=== PATIENT | male | born 1940 | race Caucasian/White ===

== ENCOUNTER 2024-01-05 12:29 | Outpatient (AMB) | payer MEDICARE, SELFPAY ==
--- NOTE | 2024-01-05 12:42 | MHC.OFFVIS ---
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 Pt states he was a previous pt of Dr. Dowling. Patient states he had a left knee arthroscopy about 12 years ago. Pt states about 7 months ago he started having left knee pain again especially when walking up and down stairs. Pt denies any previous injections in his left knee. He has done physical therapy exercises which aggravated his pain. He has also tried Tylenol and anti-inflammatory medicines which gave him minimal relief. Allergies No Known Allergies Allergy (Verified 01/05/24 12:43) Medication List - Last Reconciled 01/05/24 by Tani Dowling MD amlodipine-benazepril 5-20 mg 1 cap PO DAILY hydrochlorothiazide 25 mg PO DAILY Physical Exam Const Other: Well-nourished well-developed very friendly male awake alert and oriented x3 in no acute distress Extrem Other: Bilateral lower extremity examination shows good capillary refill, no skin lesions noted, normal sensation light touch Left knee examination shows a minimal effusion, palpable crepitus with range of motion, pain with range of motion, no instability Office Procedures Joint Injection/Aspiration Joint Injection/Aspiration Primary Site: left knee Prep: site was prepped using aseptic technique Injected: 40 mg of, DepoMedrol and 1% plain lidocaine Procedure: The patient tolerated the procedure well Coding 01214 - Large joint Procedure code (CPT) selection complete Results Reviewed Results Reviewed: X-rays of the patient's left knee show mild to moderate joint space narrowing most significant in the medial compartment, subchondral sclerosis, no acute bony abnormalities Assessment & Plan Assessment & Plan (1) Left knee pain: Code(s): M25.562 - Pain in left knee Category: Medical Plan Mr. Chao presents with left knee pain due to degenerative joint disease. I had a lengthy discussion with the patient regarding the treatment options. The risks and benefits of a left knee cortisone injection were discussed at length with the patient. The patient wished to proceed. He tolerated the injection well. He will continue with his home exercise program. He will contact me prior to his follow-up appointment in 3 months should his symptoms worsen in any way. I spent 21 minutes in reviewing the patient's records and imaging studies, seeing the patient and documenting in the medical record. Orders: Orders XR knee LT 3V 12/21/23 M25.562 - Pain in left knee XR knee LT 3V Today M25.562 - Pain in left knee AMB Joint Injection/Aspiration Today M25.562 - Pain in left knee Coding Level of Care Code Est Pt Level 3 (92751) Complex EM visit Add On G2211 Diagnoses Left knee pain M25.562 CPT Codes Coding - 80889 Large joint: 05370 - Large joint ([id number])
== END 2024-01-05 13:08 | disposition home or self-care (01) ==
PROVIDERS: Visit Provider Orthopaedic Surgery
DX: M25.562 Pain in left knee (principal)
CPT/HCPCS: 20610; 99213

== ENCOUNTER 2024-01-05 13:50 | Outpatient (REF) | payer MEDICARE, SELFPAY ==
--- NOTE | ~2024-01-05 | XR_ITS ---
EXAMINATION: XR LEFT KNEE 3 VIEWS CLINICAL INFORMATION: Pain in left knee M25.562. COMPARISON: None available. TECHNIQUE: Three views of the left knee. FINDINGS: Severe medial compartment arthritis, joint space, osteophytes, sclerosis, cyst. Mild patellofemoral arthritis. No visible acute fracture or dislocation. Small effusion. Vascular calcification. XR/XR knee LT 3V IMPRESSION: Degenerative arthritis as above. Study is assigned for dictation on March 08, 2024 Electronically signed by: Asif Madden MD 03/08/2024 11:55 AM TRACY
== END 2024-01-05 13:51 | disposition home or self-care (01) ==
LOC: HO.HOSX 13:50
PROVIDERS: Visit Provider Orthopaedic Surgery
DX: M25.562 Pain in left knee (principal)
CPT/HCPCS: 20610; 73562; 99212; J1010; J2003

== ENCOUNTER 2024-04-06 13:02 | Outpatient (AMB) | payer MEDICARE, SELFPAY ==
--- NOTE | 2024-04-06 13:03 | A.OFFVIS_ITS ---
Vital Signs 04/06/24 13:09 Height 5 ft 10 in Weight 235 lb BMI 33.7 Intake Visit Reasons: Left knee pain and giving way Intake Note: Dwight is an 83 year old male who presents with complaints of progressively worsening left knee pain and giving way. The patient did undergo left knee arthroscopic surgery approximately 12 years ago. He got fairly good relief from that procedure initially. The patient states that he re-injured his left knee approximately 1 year ago. He twisted his knee and had acute onset of pain. He was given a cortisone injection at his last visit which gave him minimal relief. He has tried Tylenol and anti-inflammatory medicines which gave him minimal relief. He states that his left knee will give out several times per day. He has failed the last 6 weeks of conservative treatment. He has done physical therapy exercises which aggravated his pain. Allergies No Known Allergies Allergy (Verified 04/06/24 13:05) Medication List - Last Reconciled 04/06/24 by Tani Dowling MD amlodipine-benazepril 5-20 mg 1 cap PO DAILY hydrochlorothiazide 25 mg PO DAILY tamsulosin 0.4 mg PO DAILY Physical Exam Vital Signs: BMI result Body Mass Index 33.7 Const Other: Well-nourished well-developed very friendly male awake alert and oriented x3 in no acute distress Extrem Other: Bilateral lower extremity examination shows good capillary refill, no skin lesions noted, normal sensation light touch Left knee examination shows a minimal effusion, mild crepitus with range of motion, tenderness along his medial joint line, positive Joanie's test, no instability Results Reviewed Results Reviewed: Standing full weight-bearing x-rays of the patient's left knee show mild diffuse joint space narrowing, no acute bony abnormalities Assessment & Plan Assessment & Plan (1) Tear of medial meniscus of left knee: Code(s): S83.242A - Other tear of medial meniscus, current injury, left knee, initial encounter Category: Medical Plan Mr. Chao presents with progressively worsening symptoms most likely due to a recurrent medial meniscus tear. Will send the patient for an MRI of his knee for further evaluation. I will see him back once the MRI is completed to discus s the findings and treatment options. Feel free to call me at any time should questions regarding his orthopedic management arise. I spent 20 minutes in reviewing the patient's records and imaging studies, seeing the patient and documenting in the medical record. Orders: Orders MR knee LT wo con Today S83.242A - Other tear of medial meniscus, current injury, left knee, initial encounter Coding Level of Care Code Est Pt Level 3 (69454) Complex EM visit Add On G2211 Diagnoses Tear of medial meniscus of left knee S83.242A
[2024-04-06 13:09] VITALS: BMI 33.7
== END 2024-04-06 13:31 | disposition home or self-care (01) ==
PROVIDERS: Visit Provider Orthopaedic Surgery
DX: S83.242A Other tear of medial meniscus, current injury, left knee, initial encounter (principal)
CPT/HCPCS: 99213; G2211

== ENCOUNTER → 2024-04-06 13:02 | Outpatient (BNVA) | payer MEDICARE, SELFPAY | PROVIDERS: Visit Provider Orthopaedic Surgery | DX: S83.242A Other tear of medial meniscus, current injury, left knee, initial encounter (principal) | CPT/HCPCS: 99212 ==

== ENCOUNTER → 2024-04-19 17:55 | Outpatient (BNV) | payer MEDICARE, SELFPAY | PROVIDERS: PCP Physician Assistant; Visit Provider Radiology Diagnostic Radiology | DX: M17.12 Unilateral primary osteoarthritis, left knee (principal); M25.462 Effusion, left knee; S83.242A Other tear of medial meniscus, current injury, left knee, initial encounter | CPT/HCPCS: 73721 ==

== ENCOUNTER 2024-04-19 18:12 | Outpatient (REF) | payer MEDICARE, SELFPAY ==
--- NOTE | ~2024-04-19 | MR_ITS ---
EXAMINATION: MRI LEFT KNEE WITHOUT CONTRAST HISTORY: S83.242A - Other tear of medial meniscus, current injury, left knee COMPARISON: Correlation is made with plain films of the left knee dated 01/05/2024. TECHNIQUE: Coronal T1 and fat-suppressed proton density, sagittal proton density and fat-suppressed proton density, and axial fat suppressed T2 weighted MR images of the left knee were obtained. FINDINGS: There is severe osteoarthritis of the medial compartment with cartilage loss, osteophyte formation, and subchondral marrow changes. Bone marrow signal intensity is otherwise normal. There is a moderate suprapatellar joint effusion. There is no Scott's cyst. The anterior and posterior cruciate ligaments and medial and lateral collateral ligaments are intact. There is partial extrusion of the medial meniscus. There is a horizontally oriented linear focus of increased T2 signal intensity in the posterior horn of the medial meniscus which contacts the inferior joint surface, consistent with a horizontal tear. The anterior horn and body of the medial meniscus are irregular in shape and demonstrates multiple foci of increased signal intensity, consistent with a degenerative tear. The lateral meniscus demonstrates a partial discoid configuration with central enlargement in the coronal plane. There are amorphous areas of increased signal intensity in the anterior and posterior horns toward the intercondylar notch which may indicate tears. The patellar and quadriceps tendons and patellar retinacula are unremarkable in appearance. MR/MR knee LT wo con IMPRESSION: 1. Severe osteoarthritis of the medial compartment. Moderate joint effusion. 2. Degenerative tear of the anterior horn and body of the medial meniscus. Horizontal tear of the posterior horn of the medial meniscus. 3. 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 Amorphous areas of increased signal intensity in the anterior and posterior horns may indicate tears. Electronically signed by: August Dior MD 04/20/2024 08:15 AM EST
--- OUTSIDE RECORDS SUMMARY | 2024-04-19 18:38 | XMS_ITS | Clinical Summary ---
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 08/30/2023 Active ascorbic acid, vitamin C, 500 mg capsule Take by mouth. OTC 02/04/2021 Active aspirin 81 mg EC tablet Take 1 tablet by mouth daily. OTC 02/04/2021 Active B complex tablet Take by mouth. OTC 02/04/2021 Active hydroCHLOROthiazide (HYDRODIURIL) 25 mg tablet Take 1 Tablet by mouth daily. 08/30/2023 Active SAW PALMETTO ORAL Take by mouth. Act tonio vitamin E acid succinate (vitamin E succinate) 268 mg (400 unit) tablet Take by mouth. OTC 02/04/2021 Active ZINC ORAL ZINC 15 MG CAP : Take by mouth. OTC - Oral 02/04/2021 Active multivitamin with iron-minerals 9 mg iron/15 mL liquid Take 15 mL by mouth 1 (one) time each day. Active multivitamin tablet Take 1 tablet by mouth 1 (one) time each day. Active glucosamine-chondroi tin 500-400 mg tablet Take 1 tablet by mouth 1 (one) time each day. Active tamsulosin (FLOMAX) 0.4 mg 24 hr capsule Take 1 capsule (0.4 mg total) by mouth 1 (one) time each day. Capsules should be taken 30 minutes following the same meal each day. 90 each 02/28/2024 05/28/2024 Active Active Problems Problem Noted Date Diagnosed Date Benign prostatic hyperplasia with nocturia 08/29 Class 2 obesity due to excess calories in adult 07/31/2021 Primary hypertension 02/04/2021 Encounters Date Type Department Care Team Description 02/28/2024 3:00 PM EST Office Visit Director [facility] [address] [place] [id number] Jorge Davis PA Primary hypertension (Primary Dx); Urinary incontinence, unspecified type; Benign prostatic hyperplasia with nocturia from Last 3 Months Immunizations Name Administration Dates Next Due Influenza trivalent, 0.5mL (Fluad) 65yo and olde r 12/03/2020,04/25/2016 Influenza, Unspecified 11/30/2022,12/30/2021 [facility] SARS-CoV-2 COVID-19, mRNA, LNP-S, preservative free 12/30/2021,12/19/2020 Pneumococcal conjugate 20 va lent (Prevnar 20, PCV 20) 2mo and older 08/17/2022 Pneumococcal polysaccharide 23 valent (Pneumovax 23) 2yo and older 08/04/2021,01/13/2018 Tdap Tetanus diptheria acell ular pertussis (Boostrix; Adacel) 7yo and older 08/04/2021 Zoster recombinant (Shingrix) 19yo and older ,01/13/2018 Surgical History Surgery Date Site/Laterality Comments TONSILLECTOMY PROCEDURE: HISTORICAL TONSILLECTOMY KNEE ARTHROSCOPY Left PROCEDURE: AL ARTHROSCOPY AID TX SPINE&/FX KNEE W/O FIXJ; COMMENT: in 2012 Medical History Medical History Date Comments HTN (hypertension) DX:HTN (hyper tension) Social History Tobacco Use Types Packs/Day Years Used Date Smoking Tobacco: Former Cigarettes 0 03/29/1954 - 03/29/1966 Smokeless Tobacco: Never Tobacco Cessation:Counseling Given: Not Answered Alcohol Use Standard Drinks/Week Comments Not Currently 0 (1 standard drink = 0.6 oz pur e alcohol) Sex and Gender Information Value Date Recorded Sex Assigned at Not on file Gender Identity Not on file Sexual Orientation Not on file Job Start Date Occupation Industry Not on file Not on file Not on file Obstetrics History Last Filed Vital Signs Vital Sign Reading Time Taken Comments Blood Pressure 130/52 02/28/2024 2:41 PM EST Pulse 64 02/28/2024 2:41 PM EST Temperature - - Respiratory Rate 16 02/28/2024 2:41 PM EST Oxygen Saturation - - Inhaled Oxygen Concentration - - Weight 109 kg (241 lb 1.6 oz) 02/28/2024 2:41 PM EST Height 177.8 cm (5' 10 ) 08/30/2023 12:54 PM EDT Body Mass Index 34.59 08/30/2023 12:54 PM EDT Plan of Treatment Upcoming Encounters Date Type Department Care Team (Late st Contact Info) Description 08/28/2024 2:30 PM EDT Office Visit Director [facility] - [address] [place] [address] Jorge Davis PA [address] [place] [address] Health Maintenance Due Date Last Done Comments RSV Immunization Patients 60+ Years Old (1 - 1-dose 75+ series) 2016 Depression Screening 03/08/2022 Falls Risk Assessment 03/08/2022 Medicare Annual Wellness Visit 03/08/2022 Social Influencers of Health Screening 03/08/2022 Hypertension/CHF/CAD Annual BMP Blood Test 02/27/2025 02/28/2024, 08/30/2023, 08/30/2023 Cholesterol Screening (Lipid Panel) 02/04/2026 02/04/2021 DTaP,Tdap,and Td Vaccines (2 - Td or Tdap) 08/05/2031 08/04/2021 Zoster Vaccines Completed 01/17/2019, 01/27, 01/13/2018 Pneumococcal Vaccine: 65+ Years Completed 08/17/2022, 08/04/2021, 02/15/2018, Additional history exists COVID-19 Vaccine Completed 12/16/2023, , 12/30/2021, Additional history exists Influenza Vaccine Completed 12/16/2023, , 11/30/2022, Additional history exists HIB Vaccines Aged Out No longer eligi ble based on patient's age to complete this topic HPV Vaccines Aged Out No longer eligi ble based on patient's age to complete this topic Hepatitis A Vaccines Aged Out No long er eligible based on patient's age to complete this topic Hepatitis B Vaccines Aged Out No long er eligible based on patient's age to complete this topic IPV Vaccines Aged Out No longer eligi ble based on patient's age to complete this topic MMR Vaccines Aged Out No longer eligi ble based on patient's age to complete this topic Meningococcal ACWY Vaccine Aged Out N o longer eligible based on patient's age to complete this topic RSV Immunization Patients Under 20 months Aged Out No longer eligible based on patient's age to complete this topic Varicella Vaccines Aged Out No longer eligible based on patient's age to complete this topic Procedures Procedure Name Priority Date/Time Associated Diagnosis Comments URINALYSIS WITH REFLEX MICROSCOPIC AND CULTURE Routine 02/28/2024 3:33 PM EST Urinary incontinence, unspecified type BASIC METABOLIC PANEL Routine 02/28/2024 3:33 PM EST Urinary incontinence, unspecified type ORTIZ URINE CULTURE TUBE Routine 02/28/2024 3:30 PM EST Urinary incontinence, unspecified type URINALYSIS WITH REFLEX MICROSCOPIC AND CULTURE Routine 02/28/2024 3:30 PM EST Urinary incontinence, unspecified type LIPID PANEL Routine 02/04/2021 from Last 3 Months or Most Recently Relevant to Health Maintenance Results * Urinalysis with reflex microscopic and culture (02/28/2024 3:33 PM EST) Specific [place] Urine 1.017 1.003 - 1.030 LAB URINALYSIS - AUTOMATED METHOD 02/28/2024 6:43 PM EST [facility] pH, Urine 6.0 5.0 - 8.0 pH LAB URINALYSIS - AUTOMATED METHOD 02/28/2024 6:43 PM EST [facility] Leukocytes, Urine Negative Negative LAB URINALYSIS - AUTOMATED METHOD 02/28/2024 6:43 PM [facility] Nitrite, Urine Negative Negative LAB URINALYSIS - AUTOMATED METHOD 02/28/2024 6:43 PM [facility] Protein, Urine Negative <=Trace mg/dL LAB URINALYSIS - AUTOMATED METHOD 02/28/2024 6:43 PM [facility] Glucose, Urine Negative Negative mg/dL LAB URINALYSIS - AUTOMATED METHOD 02/28/2024 6:43 PM [facility] Ketones, Urine Negative Negative mg/dL LAB URINALYSIS - AUTOMATED METHOD 02/28/2024 6:43 PM [facility] Urobilinogen, Urine 0.2 0.2 - 1.0 mg/dL LAB URINALYSIS - AUTOMATED METHOD 02/28/2024 6:43 PM [facility] Bilirubin, Urine Negative Negative LAB URINALYSIS - AUTOMATED METHOD 02/28/2024 6:43 PM [facility] Blood, Urine Negative Negative LAB URINALYSIS - AUTOMATED METHOD 02/28/2024 6:43 PM [facility] Urine Urine specimen obtained by clean catch procedure / Unknown Non-blood Collection / Unknown 02/28/2024 3:33 PM EST 02/28/2024 3:33 PM EST Jorge MANCINI LAB URINE ORDER SHALA [facility] [address] [place] [address], * Basic metabolic panel (02/28/2024 3:33 PM EST) Sodium 141 133 - 145 mmol/L LAB CHEMISTRY METHOD 02/28/2024 6:22 PM [facility] Potassium 4.2 3.5 - 5.5 mmol/L LAB CHEMISTRY METHOD 02/28/2024 6:22 PM [facility] Chloride 107 96 - 110 mmol/L LAB CHEMISTRY METHOD 02/28/2024 6:22 PM [facility] CO2 27 21 - 32 mmol/L LAB CHEMISTRY METHOD 02/28/2024 6:22 PM [facility] Anion Gap 7 3 - 11 LAB CHEMISTRY METHOD 02/28/2024 6:22 PM [facility] Glucose 94 70 - 100 mg/dL LAB CHEMISTRY METHOD 02/28/2024 6:22 PM [facility] BUN 25 5 - 25 mg/dL LAB CHEMISTRY METHOD 02/28/2024 6:22 PM [facility] Creatinine 0.99 0.70 - 1.30 mg/dL LAB CHEMISTRY METHOD 02/28/2024 6:22 PM [facility] eGFR 76 >=60 mL/min/1. 73m2 LAB CHEMISTRY METHOD 02/28/2024 6:22 PM [facility] Comment:Calculation based on the??Chronic Kidney Disease Epidemiology Collaboration (CKD-EPI) equation refit??without adjustment for race. BUN/Creatinine Ratio 25.3 LAB CHEMISTRY METHOD 02/28/2024 6:22 PM [facility] Calcium 10.0 8.5 - 10.5 mg/dL LAB CHEMISTRY METHOD 02/28/2024 6:22 PM [facility] Blood Venous blood specimen / Unknown Venipuncture / Unknown 02/28/2024 3:33 PM EST 02/28/2024 3:33 PM EST Jorge MANCINI LAB BLOOD ORDER SHALA [facility] [address] [place] [address], * Ortiz urine culture tube (02/28/2024 3:30 PM EST) Extra Tube Hold for add-ons. 02/28/2024 6:01 PM [facility] Comment:Auto resulted. Urine Urine specimen obtained by clean catch procedure / Unknown Non-blood Collection / Unknown 02/28/2024 3:30 PM EST 02/28/2024 4:50 PM EST Jorge MANCINI LAB URINE ORDER SHALA [place]ristian [place] ([facility]) [facility] [address] [place] [address], * (ABNORMAL) Lipid panel (02/04/2021) LDL/HDL Ratio 5(A) 0 - 4 Triglycerides 196(A) 0 - 150 mg/dL Cholesterol 200 0 - 200 mg/dL HDL 42 40 mg/dL LDL Cholesterol 119(A) 0 - 100 mg/dL Blood Venous blood specimen / Unknown Historical Provider LAB BLOOD ORDERAB LES from Last 3 Months or Most Recently Relevant to Health Maintenance Care Teams 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
== END 2024-04-19 18:13 | disposition home or self-care (01) ==
LOC: HO.MRI 18:12
PROVIDERS: PCP Physician Assistant; Visit Provider Orthopaedic Surgery
DX: S83.242A Other tear of medial meniscus, current injury, left knee, initial encounter (principal)
CPT/HCPCS: 73721

== ENCOUNTER 2024-05-09 12:29 | Outpatient (AMB) | payer MEDICARE, SELFPAY ==
[2024-05-09 12:34] VITALS: BMI 33.7
--- NOTE | 2024-05-09 12:34 | A.OFFVIS_ITS ---
Vital Signs 05/09/24 12:34 Height 5 ft 10 in Weight 235 lb BMI 33.7 Intake Visit Reasons: Left knee pain and giving way Intake Note: Dwight is an 83 year old male who presents with complaints of progressively worsening left knee pain and giving way. The patient did undergo left knee arthroscopic surgery approximately 12 years ago. He got fairly good relief from that procedure initially. The patient states that he re-injured his left knee approximately 1 year ago. He twisted his knee and had acute onset of pain. He was given a cortisone injection at his last visit which gave him minimal relief. He has tried Tylenol and anti-inflammatory medicines which gave him minimal relief. He states that his left knee will give out several times per day. He has failed the last 6 weeks of conservative treatment. He has done physical therapy exercises which aggravated his pain. Allergies No Known Allergies Allergy (Verified 04/06/24 13:05) Medication List - Last Reconciled 05/09/24 by Tani Dowling MD amlodipine-benazepril 5-20 mg 1 cap PO DAILY hydrochlorothiazide 25 mg PO DAILY tamsulosin 0.4 mg PO DAILY Physical Exam Vital Signs: BMI result Body Mass Index 33.7 Const Other: Well-nourished well-developed very friendly male awake alert and oriented x3 in no acute distress Extrem Other: Bilateral lower extremity examination shows good capillary refill, no skin lesions noted, normal sensation light touch Left knee examination shows a minimal effusion, mild crepitus with range of motion, tenderness along his medial joint line, positive Joanie's test, no instability Results Reviewed Results Reviewed: Standing full weight-bearing x-rays of the patient's left knee shows moderate diffuse joint space narrowing, no acute bony abnormalities MRI of the patient's left knee shows moderate diffuse degenerative joint disease as well as a recurrent medial meniscus tear Assessment & Plan Assessment & Plan (1) Tear of medial meniscus of left knee: Code(s): S83.242A - Other tear of medial meniscus, current injury, left knee, initial encounter Category: Medical Plan Mr. Chao presents with recurrent left knee pain and mechanical symptoms due to degenerative joint disease as well as a recurrent medial meniscus tear. I had a lengthy discussion with the patient regarding the treatment options. The risks and benefits of left knee revision arthroscopic surgery versus left total knee replacement surgery were discussed at length with the patient. The patient wishes to proceed with the arthroscopic procedure. He does understand that he may not get 100% relief of his symptoms depending on the severity of his degenerative changes. Because of the patient's significant mechanical symptoms I do feel that he would benefit significantly from arthroscopic surgery. Oneal rgery will most likely involve left knee arthroscopic partial medial meniscectomy. The patient will be scheduled for next available date. He will follow up as instructed. Feel free to call me at any time should questions regarding his orthopedic management arise. I spent 20 minutes in reviewing the patient's records and imaging studies, seeing the patient and documenting in the medical record. Coding Level of Care Code Est Pt Level 3 (86904) Complex EM visit Add On G2211 Diagnoses Tear of medial meniscus of left knee S83.242A
--- OUTSIDE RECORDS SUMMARY | 2024-05-09 13:36 | XMS_ITS | Clinical Summary ---
Author Organization [facility] [address] Building Address [address] [facility] [place] [address] Phone Care Team Providers Care [employer] Supervisor Name Role Phone Guera Berman DO Primary Care Provider Allergies No known active allergies Medications ascorbic acid, vitamin C, 500 mg capsule Take by mouth. OTC 1 Active aspirin 81 mg EC tablet Take 1 tablet by mouth daily. OTC 1 Active B complex tablet Take by mouth. OTC 1 Active SAW PALMETTO ORAL Take by mouth. Active vitamin E acid succinate (vitamin E succinate) 268 mg (400 unit) tablet Take by mouth. OTC 1 Active ZINC ORAL ZINC 15 MG CAP : Take by mouth. OTC - Oral 1 Active multivitamin with iron-minerals 9 mg iron/15 mL liquid Take 15 mL by mouth 1 (one) time each day. Active multivitamin tablet Take 1 tablet by mouth 1 (one) time each day. Active glucosamine-cho ndroitin 500-400 mg tablet Take 1 tablet by mouth 1 (one) time each day. Active tamsulosin (FLOMAX) 0.4 mg 24 hr capsule Take 1 capsule (0.4 mg total) by mouth 1 (one) time each day. Capsules should be taken 30 minutes following the same meal each day. 90 each 4 05/29/19 25 Active amLODIPine-citllali zepril (LOTREL) 5-20 mg per capsule Take 1 capsule by mouth 1 (one) time each day. 90 capsule 5 Active hydroCHLOROthia zide (HYDRODIURIL) 25 mg tablet Take 1 tablet (25 mg total) by mouth 1 (one) time each day. 90 tablet 5 Active amLODIPine-citlalli zepril (LOTREL) 5-20 mg per capsule Take 1 Capsule by mouth daily. 4 05/01/19 25 Discontinu ed(Reorder ) hydroCHLOROthia zide (HYDRODIURIL) 25 mg tablet Take 1 Tablet by mouth daily. 4 05/01/19 25 Discontinu ed(Reorder ) Active Problems Problem Noted Date Diagnosed Date Benign prostatic hyperplasia with nocturia 08/29 Class 2 obesity due to excess calories in adult 07/31/2021 Primary hypertension 02/04/2021 Encounters Date Type Department Care Team Description 02/28/2024 3:00 PM EST Office Visit [facility] [address] [place] [address] Jorge Davis PA Primary hypertension (Primary Dx); Urinary incontinence, unspecified type; Benign prostatic hyperplasia with nocturia from Last 3 Months Immunizations Name Administration Dates Next Due Influenza trivalent, 0.5mL (Fluad) 65yo and olde r 12/03/2020,04/25/2016 Influenza, Unspecified 11/30/2022,12/30/2021 Joystickers SARS-CoV-2 COVID-19, mRNA, LNP-S, preservative free 12/30/2021,12/19/2020 Pneumococcal conjugate 20 va lent (Prevnar 20, PCV 20) 2mo and older 08/17/2022 Pneumococcal polysaccharide 23 valent (Pneumovax 23) 2yo and older 08/04/2021,01/13/2018 Tdap Tetanus diptheria acell ular pertussis (Boostrix; Adacel) 7yo and older 08/04/2021 Zoster recombinant (Shingrix) 19yo and older ,01/13/2018 Surgical History Surgery Date Site/Laterality Comments TONSILLECTOMY PROCEDURE: HISTORICAL TONSILLECTOMY KNEE ARTHROSCOPY Left PROCEDURE: NM ARTHROSCOPY AID TX SPINE&/FX KNEE W/O FIXJ; [...] Recorded Sex Assigned at Not on file Legal Sex Male 12:47 PM EST Gender Identity Male 05/01/2024 11:14 AM EST Sexual Orientation Straight 05/01/2024 11 :14 AM EST Obstetrics History Last Filed Vital Signs Vital [...] Description 08/28/2024 2:30 PM EDT Office Visit [facility] [address] [place], [place] [phone] Jorge Davis PA [address] [place] [address] Health Maintenance Due Date Last Done Comments RSV Immunization Patients 60+ Years Old (1 - 1-dose 75+ series) 2016 DTaP,Tdap,and Td Vaccines (2 - Td or Tdap) 09/01/2021 08/04/2021 Depression Screening 03/08/2022 Falls Risk Assessment 03/08/2022 Medicare Annual Wellness Visit 03/08/2022 Social Influencers of Health Screening 03/08/2022 Hypertension/CHF/CAD Annual BMP Blood Test 02/27/2025 02/28/2024, 08/30/2023, 08/30/2023 Cholesterol Screening (Lipid Panel) 02/04/2026 02/04/2021 Zoster Vaccines Completed 01/17/2019, 01/27, 01/13/2018 Pneumococcal Vaccine: 50+ Years Completed 08/17/2022, 08/04/2021, 02/15/2018, Additional history [...] patient's age to complete this topic Meningococcal B Vacine Aged Out No lo nger eligible based on patient's age to complete [...] and culture (02/28/2024 3:33 PM EST) Specific [place] Urine 1.017 1.003 - 1.030 LAB URINALYSIS - AUTOMATED METHOD 02/28/2024 6:43 PM [facility] pH, Urine 6.0 5.0 - 8.0 pH LAB URINALYSIS - AUTOMATED METHOD 02/28/2024 6:43 PM [facility] Leukocytes, Urine Negative Negative LAB URINALYSIS - AUTOMATED METHOD 02/28/2024 6:43 PM [facility] Nitrite, Urine Negative Negative LAB URINALYSIS - AUTOMATED METHOD 02/28/2024 6:43 PM [facility] Protein, Urine Negative <=Trace mg/dL LAB URINALYSIS - AUTOMATED METHOD 02/28/2024 6:43 PM [facility] Glucose, Urine Negative Negative mg/dL LAB URINALYSIS - AUTOMATED METHOD 02/28/2024 6:43 PM [facility] Ketones, Urine Negative Negative mg/dL LAB URINALYSIS - AUTOMATED METHOD 02/28/2024 6:43 PM [facility] Urobilinogen, Urine 0.2 0.2 - 1.0 mg/dL LAB URINALYSIS - AUTOMATED METHOD 02/28/2024 6:43 PM [facility] Bilirubin, Urine Negative Negative LAB URINALYSIS - AUTOMATED METHOD 02/28/2024 6:43 PM [facility] Blood, Urine Negative Negative LAB URINALYSIS - AUTOMATED METHOD 02/28/2024 6:43 PM [facility] Urine Urine specimen obtained by clean catch procedure / Unknown Non-blood Collection / Unknown 02/28/2024 3:33 PM EST 02/28/2024 3:33 PM EST Jorge MANCINI LAB URINE ORDERABLES Fi nal Result [facility] [address] [place] [address], [place] [phone] * Basic metabolic panel (02/28/2024 3:33 PM EST) Pathologist [facility] Sodium 141 133 - 145 mmol/L LAB CHEMISTRY METHOD 02/28/2024 6:22 PM [facility] Potassium 4.2 3.5 - 5.5 mmol/L LAB CHEMISTRY METHOD 02/28/2024 6:22 PM [facility] Chloride 107 96 - 110 mmol/L LAB CHEMISTRY METHOD 02/28/2024 6:22 PM [facility] CO2 27 21 - 32 mmol/L LAB CHEMISTRY METHOD 02/28/2024 6:22 PM [facility] Anion Gap 7 3 - 11 LAB CHEMISTRY METHOD 02/28/2024 6:22 PM [facility] Glucose 94 70 - 100 mg/dL LAB CHEMISTRY METHOD 02/28/2024 6:22 PM [facility] BUN 25 5 - 25 mg/dL LAB CHEMISTRY METHOD 02/28/2024 6:22 PM [facility] Creatinine 0.99 0.70 - 1.30 mg/dL LAB CHEMISTRY METHOD 02/28/2024 6:22 PM [facility] eGFR 76 >=60 mL/min/1. 73m2 LAB CHEMISTRY METHOD 02/28/2024 6:22 PM [facility] Comment:Calculation based on the??Chronic Kidney Disease Epidemiology Collaboration (CKD-EPI) equation refit??without adjustment for race. BUN/Creatinine Ratio 25.3 LAB CHEMISTRY METHOD 02/28/2024 6:22 PM [facility] Calcium 10.0 8.5 - 10.5 mg/dL LAB CHEMISTRY METHOD 02/28/2024 6:22 PM EST [facility] Blood Venous blood specimen / Unknown Venipuncture / Unknown 02/28/2024 3:33 PM EST 02/28/2024 3:33 PM EST Jorge MANCINI LAB BLOOD ORDERABLES Fi nal Result [facility] [address] [place] [address], [place] [phone] * Ortiz urine culture tube (02/28/2024 3:30 PM EST) Pathologist [facility] Extra Tube Hold for add-ons. 02/28/2024 6:01 PM EST [facility] Comment:Auto resulted. Urine Urine specimen obtained by clean catch procedure / Unknown Non-blood Collection / Unknown 02/28/2024 3:30 PM EST 02/28/2024 4:50 PM EST Jorge MANCINI LAB URINE ORDERABLES Fi nal Result Performing Organization Address City/[facility]/ZIP Co de Phone Number [facility] [address] [place] [address], [place] [phone] * (ABNORMAL) Lipid panel (02/04/2021) LDL/HDL Ratio 5(A) 0 - 4 Triglycerides 196(A) 0 - 150 mg/dL Cholesterol 200 0 - 200 mg/dL HDL 42 >=40 mg/dL LDL Cholesterol 119(A) 0 - 100 mg/dL Blood Venous blood specimen / Unknown Historical Provider LAB BLOOD ORDERABLES Yanira l Result from Last 3 Months or Most Recently Relevant to Health Maintenance Insurance [employer] MED[employer]ARE Care Teams [employer] Supervisor Relationship Specialty Start Date End Date Guera Berman DO [address] [place] [address] PCP - General Internal Medicine 01/28/24
== END 2024-05-09 12:49 | disposition home or self-care (01) ==
PROVIDERS: PCP Physician Assistant; Visit Provider Orthopaedic Surgery
DX: S83.242A Other tear of medial meniscus, current injury, left knee, initial encounter (principal)
CPT/HCPCS: 99213; G2211

== ENCOUNTER → 2024-05-09 12:29 | Outpatient (BNVA) | payer MEDICARE, SELFPAY | PROVIDERS: PCP Physician Assistant; Visit Provider Orthopaedic Surgery | DX: S83.242A Other tear of medial meniscus, current injury, left knee, initial encounter (principal); X58.XXXA Exposure to other specified factors, initial encounter; Y93.9 Activity, unspecified; Y92.9 Unspecified place or not applicable; Y99.9 Unspecified external cause status | CPT/HCPCS: 99212 ==

== ENCOUNTER → 2024-06-16 08:54 | Day surgery (SDC) | payer MEDICARE, SELFPAY ==
[2024-06-14 12:02] VITALS: BMI 33.7
--- NOTE | 2024-06-14 14:59 | P.CONAN_ITS ---
HPI - Anesthesia Eval Consult details Narrative: 84yo M for Left Knee Arthroscopy with partial medial meniscectomy PMFSH Active Problems Active Problems: All Active Problems Tear of medial meniscus of left knee (Acute) Left knee pain (Acute) Past Medical History Medical History (Updated 06/14/24 @ 11:57 by Florecita Card RN) HTN (hypertension) Surgical History Surgical History (Updated 06/14/24 @ 12:02 by Florecita aCrd RN) Hx of arthroscopy of left knee Meds Allergies Allergy/AdvReac Type Severity Reaction Status Date / Time No Known Allergies Allergy Verified 04/06/24 13:05 Active Medications: Current Medications Cefazolin Sodium/Dextrose (Ancef) 2 gm in 50 mls @ 100 mls/hr IV PREOP ONE Stop: 06/16/24 05:54 Home Medications ?Medication ?Instructions ?Recorded ?Confirmed ?Last Taken ?Type amlodipine 5 mg-benazepril 20 mg 1 cap PO DAILY 01/05/24 06/14/24 Unknown His tory capsule hydrochlorothiazide 25 mg tablet 25 mg PO DAILY 01/05/24 06/14/24 Unknown History tamsulosin 0.4 mg capsule 0.4 mg PO DAILY 04/06/24 06/14/24 Unknown History Exam Height,Weight and Vital Signs: Height 5 ft 10 in Weight 106.594 kg Assessment and Plan Assessment Anesthesia Assessment: Chart Reviewed
--- NOTE | 2024-06-16 09:12 | PC.NURSE ---
pt cancelled, had communion wafer at 0700. surgeon unable to do later in the day. pt to call office to reschedule.
== END ==
LOC: HO.SSS 08:55
PROVIDERS: PCP Physician Assistant; Visit Provider Orthopaedic Surgery
DX: S83.242A Other tear of medial meniscus, current injury, left knee, initial encounter (principal); Z53.09 Procedure and treatment not carried out because of other contraindication; I10 Essential (primary) hypertension; Z79.899 Other long term (current) drug therapy

== ENCOUNTER 2024-07-07 06:05 | Day surgery (SDC) | payer MEDICARE, SELFPAY ==
--- NOTE | 2024-07-05 14:38 | HO.ANESPROP2 ---
Documented by User: Lily Best NP 07/05/24 14:38 HPI - Anesthesia Eval Consult details Narrative: 84yo M for Left Knee Arthroscopy with partial medial meniscectomy PMFSH Active Problems Active Problems: All Active Problems Tear of medial meniscus of left knee (Acute) Left knee pain (Acute) Past Medical History Medical History BPH (benign prostatic hyperplasia) HTN (hypertension) Surgical History Surgical History Hx of arthroscopy of left knee Social History Social History Are you a primary careers adviser to a significant other at home: No Do you presently have visiting nurse or other home services: No Patient Tobacco Use Status: Former Tobacco user Have you been hit, kicked, punched, or otherwise hurt by someone within the past year? If so, by whom?: No Are you DNR?: No Advance Directives: No Advance Directives Information Provided: Yes Poor oral hygiene: No Meds Allergies Allergy/AdvReac Type Severity Reaction Status Date / Time No Known Allergies Allergy Verified 07/07/24 06:23 Active Medications: Current Medications Cefazolin Sodium/Dextrose (Ancef) 2 gm in 50 mls @ 100 mls/hr IV PREOP ONE Stop: 07/07/24 06:13 Home Medications ?Medication ?Instructions ?Recorded ?Confirmed ?Last Taken ?Type amlodipine 5 mg-benazepril 20 mg 1 cap PO DAILY 01/05/24 07/07/24 Unknown History capsule hydrochlorothiazide 25 mg tablet 25 mg PO DAILY 01/05/24 07/07/24 Unknown History tamsulosin 0.4 mg capsule 0.4 mg PO DAILY 04/06/24 07/07/24 Unknown History Assessment and Plan Assessment Anesthesia Assessment: Chart Reviewed Documented by User: Charu Nguyen MD 07/07/24 07:25 [facility] Past Medical History Medical History BPH (benign prostatic hyperplasia) HTN (hypertension) Family History Family history of problems with anesthesia: No Surgical History Surgical History Hx of arthroscopy of left knee History of Problems with Anesthesia: No Social History Social History Are you a primary careers adviser to a significant other at home: No Do you presently have visiting nurse or other home services: No Patient Tobacco Use Status: Former Tobacco user Have you been hit, kicked, punched, or otherwise hurt by someone within the past year? If so, by whom?: No Are you DNR?: No Advance Directives: No Advance Directives Information Provided: Yes Poor oral hygiene: No Meds Allergies Allergy/AdvReac Type Severity Reaction Status Date / Time No Known Allergies Allergy Verified 07/07/24 06:23 Home Medications ?Medication ?Instructions ?Recorded ?Confirmed ?Last Taken ?Type amlodipine 5 mg-benazepril 20 mg 1 cap PO DAILY 01/05/24 07/07/24 Unknown History capsule hydrochlorothiazide 25 mg tablet 25 mg PO DAILY 01/05/24 07/07/24 Unknown History tamsulosin 0.4 mg capsule 0.4 mg PO DAILY 04/06/24 07/07/24 Unknown History Exam Airway Mallampati Class: II TM Dist: >3cm Neck ROM: Full Heart: rrr Lungs: cta Assessment and Plan Assessment Anesthesia Assessment: Anesthesia Plan Discussed Final Anesthetic Review Family History of Problems with Anesthesia: No History of Problems with Anesthesia: No NPO: Yes ASA Class: II Final Preanesthetic Review: No Changes in Pt Med Stat, Meds/Allgs Chart Reviewed, Consent Obtained/Reviewed and Anes Risks/Benef Reviewed Patient Risk: Low Procedure Risk: Low Anesthetic Plan Anesthetic Plan: GA Disposition: Standard PACU
[2024-07-07] VITALS (7 sets, daily range): BP systolic 128–162; BP diastolic 50–96; PULSE 51–67; RESP 16–18; TEMP 36.2–36.8; O2SAT 97–99; BMI 34.4
[2024-07-07] MEDS: Lactated Ringers 1,000 ML 100 ML IVCONT (06:30)
[2024-07-07] MEDS: ceFAZolin Sodium/Dextrose,Iso 2 GM/50 ML PIGGYBACK IV (07:33)
[2024-07-07] MEDS: Acetaminophen 1,000 MG/100 ML PIGGYBACK 400 MG IV (07:59)
--- NOTE | 2024-07-07 08:51 | P.BOP_ITS ---
Brief Operative Note Date of Service: 07/07/24 Pre-op diagnosis: Left knee medial meniscus tear, left knee degenerative joint disease Post-op diagnosis: same Procedure: Left knee arthroscopic partial medial meniscectomy, left knee arthroscopic chondroplasty of the undersurface of the patella and medial tibial plateau Implants: none Surgeon: Tani Dowling MD Anesthesia: GLMA Was an Table Tender used for this Procedure?: No Estimated blood loss (mL): 10 Pathology: none sent Condition: stable Disposition: PACU
--- NOTE | 2024-07-07 08:52 | P.OP_ITS ---
Operative Note Operative Note Date of Service: 07/07/24 Narrative: After the patient was identified as Dwight Chao and his left knee was initialed by myself they were brought to the operating room where general anesthesia was induced by the anesthesiologist in routine fashion. The patient was given 2 g of IV Ancef preoperatively for infection prophylaxis. The patient's left lower extremity was prepped and draped in sterile fashion. A formal time-out was completed. Marcaine was injected into the planned incision sites as well as the patient's left knee joint. A #11 scalpel blade was used to make an anterolateral portal 1 cm proximal to the joint line and 1 cm lateral to the p atellar tendon. Blunt trocar technique was used to enter the suprapatellar pouch with the knee in extension. Diagnostic arthroscopy showed multiple bands of thickened plica which would be excised at the end of the procedure. There were no loose bodies or abnormalities found in either the medial or lateral gutters. The articular surface of the patella showed diffuse grades 2 and 3 degenerative changes. The trochlear groove articular surface showed diffuse grade 1 degenerative changes. The patient's knee was flexed to 45 degrees and a valgus force was placed upon it. The medial compartment was entered. An anteromedial portal was made 1 cm proximal to the joint line and 1 cm medial to the patellar tendon. Probing of the medial meniscus showed a radial tear of the posterior horn. A partial medial meniscectomy was performed using the arthroscopic shaver. Following the partial meniscectomy the remainder of the meniscus tissue was stable. There were diffuse grades 3 and 4 degenerative changes of the medial femoral condyle as well as grades 3 and 4 degenerative changes of the medial tibial plateau. The articular surface of the medial tibial plateau was then made smooth using the arthroscopic shaver. The articular surface of the medial femoral condyle was already smooth so no chondroplasty was indicated. The patient's knee was placed into a neutral position. There was no injury to the anterior cruciate ligament. The patient's knee was then placed in the figure of 4 position and the lateral compartment was entered. There was no evidence of lateral meniscus tearing. There were minimal degenerative changes of the lateral femoral condyle and lateral tibial plateau. The patient's knee was once again brought into extension and the suprapatellar pouch was entered. The arthroscopic shaver and the ArthroCare Wand were used to excise the thickened bands of plica. The undersurface of the patella was then made smooth using the arthroscopic shaver. The articular surface of the trochlear groove was already smooth so no chondroplasty was indicated. The knee joint was irrigated and then drained. All arthroscopic instruments were removed. The 2 portals were closed with 3-0 nylon interrupted suture. The knee joint was injected with Marcaine. Dry sterile dressing and Adan bandages were placed over the patient's knee. The patient was awoken and extubated in the operating room. The patient was transferred to the recovery room in stable condition.
[2024-07-07] MEDS: cefTRIAXone sodium 1 GM VIAL IVPUSH (09:12)
== END 2024-07-07 09:59 | disposition home or self-care (01) ==
PROVIDERS: PCP Physician Assistant; Visit Provider Orthopaedic Surgery
PROC: (CPT 29870; principal; 2024-07-07 07:30)
DX: S83.242A Other tear of medial meniscus, current injury, left knee, initial encounter (principal); M23.8X2 Other internal derangements of left knee; M17.12 Unilateral primary osteoarthritis, left knee; M67.52 Plica syndrome, left knee; M25.562 Pain in left knee; M23.52 Chronic instability of knee, left knee; X50.1XXA Overexertion from prolonged static or awkward postures, initial encounter; Y93.9 Activity, unspecified; Y92.9 Unspecified place or not applicable; Y99.9 Unspecified external cause status; I10 Essential (primary) hypertension; Z79.899 Other long term (current) drug therapy; Z98.890 Other specified postprocedural states; Z87.891 Personal history of nicotine dependence
CPT/HCPCS: 29881; J0131; J0171; J0690; J0696; J1100; J2003; J2405; J2704; J2795; J3010

== ENCOUNTER → 2024-07-07 06:05 | Outpatient (BNV) | payer MEDICARE, SELFPAY | PROVIDERS: PCP Physician Assistant; Visit Provider Orthopaedic Surgery | DX: S83.242A Other tear of medial meniscus, current injury, left knee, initial encounter (principal) | CPT/HCPCS: 29881 ==

== ENCOUNTER 2024-07-19 09:01 | Outpatient (AMB) | payer MEDICARE, SELFPAY ==
--- NOTE | 2024-07-19 09:02 | A.OFFVIS_ITS ---
Vital Signs 07/19/24 09:05 Height 5 ft 10 in Weight 235 lb BMI 33.7 Intake Visit Reasons: PO LT knee 07/07/24 DR Jenkins Note: Dwight is an 84 year old male who presents today for his first post-operative visit after undergoing a left knee arthroscopy on 07/07/24. Patient reports that he is doing well with no current concerns.The pain that he has most of his pain in the quad , this feels this is muscle soreness. He went golfing yesterday which made his knee bit sore. Sutures removed in office and steri strips applied. Allergies No Known Allergies Allergy (Verified 07/19/24 09:07) Medication List - Last Reconciled 07/19/24 by Tani Dowling MD amlodipine-benazepril 5-20 mg 1 cap PO DAILY hydrochlorothiazide 25 mg PO DAILY tamsulosin 0.4 mg PO DAILY PFSH Medical History BPH (benign prostatic hyperplasia) HTN (hypertension) Surgical History Hx of arthroscopy of left knee Social History Are you a primary home health care provider to a significant other at home: No Do you presently have visiting nurse or other home services: No Patient Tobacco Use Status: Former Tobacco user Physical Exam Vital Signs: BMI result Body Mass Index 33.7 Extrem Other: Left knee examination shows that the surgical incisions are well healed, no erythema, mild crepitus with range of motion, no instability Assessment & Plan Assessment & Plan (1) Left knee pain: Code(s): M25.562 - Pain in left knee Category: Medical Plan Mr. Chao is doing well after undergoing left knee arthroscopic surgery on 07/07/2024. His sutures were removed and Steri-Strips placed over his incisions. He will gradually progress to activities as tolerated. He will contact me prior to his follow-up appointment in 2 months should any questions or concerns arise. Feel free to call me at any time should questions regarding his orthopedic management arise. Coding Level of Care Code Global (60999) Diagnoses Left knee pain M25.562
[2024-07-19 09:05] VITALS: BMI 33.7
--- OUTSIDE RECORDS SUMMARY | 2024-07-19 09:46 | XMS_ITS | Clinical Summary ---
Author Organization [facility] [address] [facility] Building Address [address] [facility] [place] [address] Phone Care Team Providers Care Design And Sales Consultant Name Role Phone Guera Berman DO Primary Care Provider [phone] Allergies No known active allergies Medications ascorbic [...] mouth 1 (one) time each day. Active glucosamine-ch ondroitin 500-400 mg tablet Take 1 tablet by mouth 1 (one) time each day. Active amLODIPine-teresa azepril (LOTREL) 5-20 mg per capsule TAKE 1 CAPSULE DAILY 90 capsule 5 Active hydroCHLOROthi azide (HYDRODIURIL) 25 mg tablet TAKE 1 TABLET ONCE DAILY 90 tablet 5 Active amLODIPine-teresa azepril (LOTREL) 5-20 mg per capsule Take 1 capsule by mouth 1 (one) time each day. 90 capsule 5 07/19/19 25 Discontinued hydroCHLOROthi azide (HYDRODIURIL) 25 mg tablet Take 1 tablet (25 mg total) by mouth 1 (one) time each day. 90 tablet 5 07/19/19 25 Discontinued Active Problems Problem Noted Date Diagnosed Date Benign prostatic hyperplasia with nocturia 08/29 Class 2 obesity due to excess calories in adult 07/31/2021 Primary hypertension 02/04/2021 Encounters Date Type Department Care Team Description 06/07/2024 Lab Requisition [facility] - Main Lab [address] [facility] [place] [address] Jordan Alvarado MD Benign essential microscopic hematuria from Last 3 Months Immunizations Name Administration Dates Next Due Influenza trivalent, 0.5mL (Fluad) 65yo and olde r 12/03/2020,04/25/2016 Influenza, Unspecified 11/30/2022,12/30/2021 Pfizer SARS-CoV-2 COVID-19, mRNA, LNP-S, preservative free 12/30/2021,12/19/2020 Pneumococcal conjugate 20 va lent (Prevnar 20, PCV 20) 2mo and older 08/17/2022 Pneumococcal polysaccharide 23 valent (Pneumovax 23) 2yo and older 08/04/2021,01/13/2018 Tdap Tetanus diptheria acell ular pertussis (Boostrix; Adacel) 7yo and older 08/04/2021 Zoster recombinant (Shingrix) 19yo and older ,01/13/2018 Surgical History Surgery Date Site/Laterality Comments TONSILLECTOMY PROCEDURE: HISTORICAL TONSILLECTOMY KNEE ARTHROSCOPY Left PROCEDURE: AR ARTHROSCOPY AID TX SPINE&/FX KNEE W/O FIXJ; [...] Description 08/28/2024 2:30 PM EDT [facility] [address] [place] [address] Jorge Davis PA [address] [place] [address] Health Maintenance Due Date Last Done Comments RSV Immunization Adult Patients (1 - 1-dose 75+ series) 2016 Depression Screening 03/08/2022 Falls Risk Assessment 03/08/2022 Medicare Annual Wellness Visit 03/08/2022 Social Influencers of Health Screening 03/08/2022 COVID-19 Vaccine ( season) 2024 12/16/2023, 12/16/2022, 12/30/2021, Additional history exists Hypertension/CHF/CAD Annual BMP Blood Test 02/27/2025 02/28/2024, 08/30/2023, 08/30/2023 Cholesterol Screening (Lipid Panel) 02/04/2026 02/04/2021 DTaP,Tdap,and Td Vaccines (2 - Td or Tdap) 08/05/2031 08/04/2021 Zoster Vaccines Completed 01/17/2019, 01/27, 01/13/2018 Pneumococcal Vaccine: 50+ Years Completed 08/17/2022, 08/04/2021, 02/15/2018, Additional history exists Influenza Vaccine Completed 12/16/2023, [...] age to complete this topic Meningococcal B Vaccine Aged Out No l onger eligible based on patient's age to complete this topic RSV Immunization Patients Under 20 months Aged Out No longer eligible based on patient's age to complete this topic Varicella Vaccines Aged Out No longer eligible based on patient's age to complete this topic Procedures Procedure Name Priority Date/Time Associated Diagnosis Comments AP OUTSIDE CONSULT Routine 06/06/2024 12 :00 AM EDT Benign essential microscopic hematuria BASIC METABOLIC PANEL Routine 02/28/2024 3:33 PM EST Urinary incontinence, unspecified type LIPID PANEL Routine 02/04/2021 from Last 3 Months or Most Recently Relevant to Health Maintenance Results * Anatomic pathology outside consult (06/06/2024 12:00 AM EDT) Final Diagnosis A. Urine, Voided, ([id number]): Negative for high grade urothelial carcinoma. 06/13/2024 3:12 PM EDT [facility] Clinical Information Benign essential microscopic hematuria R31.1 Urine cytology with reflex UroVysion ([facility]) 06/13/2024 3:12 PM EDT [facility] Gross Description A. Urine, Voided, ([id number]): Received is one ThinPrep slide for cytology. 06/13/2024 3:12 PM EDT [facility] Disclaimer Unless otherwise specified, all tissue is 10% NB formalin fixed and paraffin embedded. Technical pathology services provided by [facility] at [address], [place] [address] (CLIA #[id number]/Sa laurence Hamilton MD, Brim Flexer) 06/13/2024 3:12 PM EDT [facility] Tissue Urine specimen from urethra / Unknown 06/06/2024 06/07/2024 3:43 PM EDT Jordan Alvarado MD LAB PATHOLOGY ORDERABLES Fi nal Result [facility] [address] [place] [address], [place] [phone] * Basic metabolic panel (02/28/2024 3:33 PM EST) Sodium 141 133 - 145 mmol/L LAB CHEMISTRY METHOD 02/28/2024 6:[address] [facility] Potassium 4.2 3.5 - 5.5 mmol/L LAB CHEMISTRY METHOD 02/28/2024 6:22 PM EST [facility] Chloride 107 96 - 110 mmol/L LAB CHEMISTRY METHOD 02/28/2024 6:22 PM EST [facility] CO2 27 21 - 32 mmol/L LAB CHEMISTRY METHOD 02/28/2024 6:[address] [facility] Anion Gap 7 3 - 11 LAB CHEMISTRY METHOD 02/28/2024 6:[address] [facility] Glucose 94 70 - 100 mg/dL LAB CHEMISTRY METHOD 02/28/2024 6:22 PM EST [facility] BUN 25 5 - 25 mg/dL LAB CHEMISTRY METHOD 02/28/2024 6:[address] [facility] Creatinine 0.99 0.70 - 1.30 mg/dL LAB CHEMISTRY METHOD 02/28/2024 6:[address] [facility] eGFR 76 >=60 mL/min/1. 73m2 LAB CHEMISTRY METHOD 02/28/2024 6:[address] [facility] Comment:Calculation based on the??Chronic Kidney Disease Epidemiology Collaboration (CKD-EPI) equation refit??without adjustment for race. BUN/Creatinine Ratio 25.3 LAB CHEMISTRY METHOD 02/28/2024 6:[address] [facility] Calcium 10.0 8.5 - 10.5 mg/dL LAB CHEMISTRY METHOD 02/28/2024 6:[address] [facility] Blood Venous blood specimen / Unknown Venipuncture / Unknown 02/28/2024 3:33 PM EST 02/28/2024 3:33 PM EST Jorge MANCINI LAB BLOOD ORDERABLES Fi nal Result [facility] [address] [place] [address], * (ABNORMAL) Lipid panel (02/04/2021) LDL/HDL Ratio [...] Maintenance Insurance [employer] MEDICARE Care Teams Design And Sales Consultant Relationship Specialty Start Date End Date Guera Berman DO [address] [place] [address] PCP - General Internal Medicine 01/28/24
--- OUTSIDE RECORDS SUMMARY | 2024-07-19 09:46 | XMS_ITS | Encounter Summary ---
Author Organization [facility] Address [address] [place] [address] Care Team Providers Care Ramp Manager Name Role Phone Rhonda Bermanmandl MARCELO Primary Care Provider [phone] Encounter Details Date Type Department Care Team (Late st Contact Info) Description 06/07/2024 Lab Requisition [facility] - Main Lab [address] [facility] [place] [phone] Jordan Alvarado MD [address] [facility] [address] [place] [address] Benign essential microscopic hematuria Social History Tobacco Use Types Packs/Day Years Used Date Smoking Tobacco: Former Cigarettes 0 03/29/1954 - 03/29/1966 Smokeless Tobacco: Never Alcohol Use Standard Drinks/Week Comments Not Currently 0 (1 standard drink = 0.6 oz pur e alcohol) Sex and Gender Information Value Date Recorded Sex Assigned at Not on file Legal Sex Male 12:47 PM EST Gender Identity Male 05/01/2024 11:14 AM EST Sexual Orientation Straight 05/01/2024 11 :14 AM EST documented as of this encounter Plan of Treatment Upcoming Encounters Date Type Department Care Team (Late st Contact Info) Description 08/28/2024 2:30 PM EDT Office Visit Internal Medicine - [facility] [place] [phone] Jorge Davis PA [address] [place] [address] documented as of this encounter Procedures Procedure Name Priority Date/Time Associated Diagnosis Comments AP OUTSIDE CONSULT Routine 06/06/2024 12 :00 AM EDT Benign essential microscopic hematuria documented in this encounter Results * Anatomic pathology outside consult (06/06/2024 12:00 AM EDT) Final Diagnosis A. Urine, Voided, ([id number]): Negative for high grade urothelial carcinoma. 06/13/2024 3:12 PM EDT [facility] Clinical Information Benign essential microscopic hematuria R31.1 Urine cytology with reflex UroVysion ([facility]) 06/13/2024 3:12 PM EDT [facility] Gross Description A. Urine, Voided, ([id number]): Received is one ThinPrep slide for cytology. 06/13/2024 3:12 PM EDT [facility] Disclaimer Unless otherwise specified, all tissue is 10% NB formalin fixed and paraffin embedded. Technical pathology services provided by [facility] at [address], [place] [address] (CLIA #[id number]/Sa laurence Hamilton MD, Senior Sourcing Manager) 06/13/2024 3:12 PM EDT [facility] Tissue Urine specimen from urethra / Unknown 06/06/2024 06/07/2024 3:43 PM EDT us Jordan Alvarado MD LAB PATHOLOGY ORDERABLES Fi nal Result [facility] [address] [place] [address], documented in this encounter Visit Diagnoses Diagnosis Benign essential microscopic hematuria documented in this encounter Care Teams Ramp Manager Relationship Specialty Start Date End Date Guera Berman DO [address] [place] [address] PCP - General Internal Medicine 01/28/24 documented as of this encounter
== END 2024-07-19 09:29 | disposition home or self-care (01) ==
LOC: HO.HOS 09:02
PROVIDERS: PCP Physician Assistant; Visit Provider Orthopaedic Surgery
DX: M25.562 Pain in left knee (principal)
CPT/HCPCS: 99024

== ENCOUNTER → 2024-07-19 09:01 | Outpatient (BNVA) | payer MEDICARE, SELFPAY | PROVIDERS: PCP Physician Assistant; Visit Provider Orthopaedic Surgery | DX: M25.562 Pain in left knee (principal); Z47.89 Encounter for other orthopedic aftercare; Z98.890 Other specified postprocedural states | CPT/HCPCS: 99212 ==

== ENCOUNTER 2024-09-06 09:04 | Outpatient (AMB) | payer MEDICARE, SELFPAY ==
[2024-09-06 09:08] VITALS: BMI 33.7
--- NOTE | 2024-09-06 09:08 | MHC.OFFVIS ---
Vital Signs 09/06/24 09:08 Height 5 ft 10 in Weight 235 lb BMI 33.7 Intake Visit Reasons: PO LT knee 07/07/24 DR-follow up Intake Note: Dwight is an 84 year old male who presents today post-operatively after undergoing a left knee arthroscopy on 07/07/24. The patient reports mild intermittent discomfort in his left knee. He takes Aleve intermittently for his discomfort. He denies any fevers or chills. Allergies No Known Allergies Allergy (Verified 09/06/24 09:11) Medication List - Last Reconciled 09/06/24 by Tani Dowling MD amlodipine-benazepril 5-20 mg 1 cap PO DAILY hydrochlorothiazide 25 mg PO DAILY tamsulosin 0.4 mg PO DAILY PFSH Medical History BPH (benign prostatic hyperplasia) HTN (hypertension) Surgical History Hx of arthroscopy of left knee Social History Are you a primary intensive care unit nurse to a significant other at home: No Do you presently have visiting nurse or other home services: No Patient Tobacco Use Status: Former Tobacco user Physical Exam Vital Signs: BMI result Body Mass Index 33.7 Extrem Other: Left knee examination shows that the surgical incisions are well healed, no erythema, mild crepitus with range of motion, minimal discomfort with range of motion, no instability Assessment & Plan Assessment & Plan (1) Left knee pain: Code(s): M25.562 - Pain in left knee Category: Medical Plan Mr. Chao is doing well after undergoing left knee arthroscopic surgery on 07/07/2024. He does have residual discomfort due to degenerative joint disease. At this point the patient's symptoms are tolerable to him. We will hold off on an injection. He will follow up with me on an as-needed basis should his symptoms worsen in any way. Feel free to call me at any time should questions regarding his orthopedic management arise. Coding Level of Care Code Global (39129) Diagnoses Left knee pain M25.562
--- OUTSIDE RECORDS SUMMARY | 2024-09-06 09:34 | XMS_ITS | Encounter Summary ---
Author Organization [facility] Address [address] [place] [address] Care Team Providers Care Tapper Hand Name Role Phone Rhonda Bermanmandl MARCELO Primary Care Provider [phone] Encounter Details Date Type Department Care Team (Late st Contact Info) Description 06/07/2024 Lab Requisition [facility] - Main Lab [address] [facility] [place] [phone] Jordan Alvarado MD [address] [facility] [address] [place] [address] Benign essential microscopic hematuria Social History Tobacco [...] Care Team (Late st Contact Info) Description 03/05/2025 10:00 AM EST [facility] [address] [place] [phone] Jorge Davis PA [address] [place] [address] documented as of this encounter Procedures Procedure Name Priority Date/Time Associated Diagnosis Comments AP OUTSIDE CONSULT Routine 06/06/2024 12 :00 AM EDT Benign essential microscopic hematuria documented in this encounter Results * Anatomic pathology outside consult (06/06/2024 12:00 AM EDT) Final Diagnosis A. Urine, Voided, ([id number]): Negative for high grade urothelial carcinoma. 06/13/2024 3:12 PM EDT [facility] Clinical Information Benign essential microscopic hematuria R31.1 Urine cytology with reflex UroVysion ([facility]) 06/13/2024 3:12 PM EDT [facility] Gross Description A. Urine, Voided, ([id number]): Received is one ThinPrep slide for cytology. 06/13/2024 3:12 PM EDT [facility] Disclaimer Unless otherwise specified, all tissue is 10% NB formalin fixed and paraffin embedded. Technical pathology services provided by [facility] at [address] [facility] [address], [place] [address] (CLIA #[id number]/Sa laurence Hamilton MD, Chief Engineer) 06/13/2024 3:12 PM EDT [facility] Tissue Urine specimen from urethra / Unknown 06/06/2024 06/07/2024 3:43 PM EDT us Jordan Alvarado MD LAB PATHOLOGY ORDERABLES Fi nal Result [facility] [address] [place] [address], documented in this encounter Visit Diagnoses Diagnosis Benign essential microscopic hematuria documented in this encounter Care Teams Tapper Hand Relationship Specialty Start Date End Date Guera Berman DO [address] [place] [id number] PCP - General Internal Medicine 01/28/24 documented as of this encounter
== END 2024-09-06 09:35 | disposition home or self-care (01) ==
LOC: HO.HOS 09:04
PROVIDERS: PCP Physician Assistant; Visit Provider Orthopaedic Surgery
DX: M25.562 Pain in left knee (principal)
CPT/HCPCS: 99024

== ENCOUNTER → 2024-09-06 09:04 | Outpatient (BNVA) | payer MEDICARE, SELFPAY | PROVIDERS: PCP Physician Assistant; Visit Provider Orthopaedic Surgery | DX: M25.562 Pain in left knee (principal) | CPT/HCPCS: 99212 ==

== ENCOUNTER 2024-10-18 13:11 | Outpatient (AMB) | payer MEDICARE, SELFPAY ==
[2024-10-18 13:14] VITALS: BMI 33.7
--- NOTE | 2024-10-18 13:14 | MHC.OFFVIS ---
Vital Signs 10/18/24 13:14 Height 5 ft 10 in Weight 235 lb BMI 33.7 Intake Visit Reasons: Inj-Lt knee Durolane inj Intake Note: Dwight is an 84 year old male who presents with complaints of left knee pain. The patient describes his pain as sharp in nature. He has had cortisone injections in the past which gave him minimal relief. He did undergo left knee arthroscopic surgery on 07/07/2024. He got mild relief from that procedure. He has tried Tylenol and anti-inflammatory medicines which gave him minimal relief. He has not had a viscosupplementation injection. He has failed the last 3 months of conservative treatment. Allergies No Known Allergies Allergy (Verified 10/18/24 13:16) Medication List - Last Reconciled 10/18/24 by Tani Dowling MD amlodipine-benazepril 5-20 mg 1 cap PO DAILY hydrochlorothiazide 25 mg PO DAILY loteprednol etabonate 0.2% 1 drp ophthalmic (eye) BID PRN tamsulosin 0.4 mg PO DAILY PFSH Medical History BPH (benign prostatic hyperplasia) HTN (hypertension) Surgical History Hx of arthroscopy of left knee Social History Are you a primary clinical care manager to a significant other at home: No Do you presently have visiting nurse or other home services: No Patient Tobacco Use Status: Former Tobacco user Physical Exam Vital Signs: BMI result Body Mass Index 33.7 Const Other: Well-nourished well-developed very friendly male awake alert and oriented x3 in no acute distress Extrem Other: Left knee examination shows that the surgical incisions are well healed, no erythema, palpable crepitus with range of motion, pain with range of motion, no instability Office Procedures AMB Joint Injection/Aspiration Joint Injection/Aspiration Primary Site: left knee Prep: site was prepped using aseptic technique Injected: 60 mg of (Durolane viscosupplementation) and 1% plain lidocaine Procedure: The patient tolerated the procedure well Coding 06484 - Large joint Procedure code (CPT) selection complete Results Reviewed Results Reviewed: X-rays of the patient's left knee taken previously show joint space narrowing, subchondral sclerosis, no acute bony abnormalities Assessment & Plan Assessment & Plan (1) Osteoarthritis of left knee: Code(s): M17.12 - Unilateral primary osteoarthritis, left knee Category: Medical Plan Mr. Chao presents with left knee pain due to osteoarthritis. The risks and benefits of a left knee Durolane viscosupplementation injection were discussed at with the patient. The patient wishes to proceed. He tolerated the injection well. He will continue with his home exercise program. He will contact me prior to his follow-up appointment in 3 months should any questions or concerns arise. Feel free to call me at any time should questions regarding his orthopedic management arise. I spent 22 minutes in reviewing the patient's records and imaging studies, seeing the patient and documenting in the medical record. Orders: Orders AMB Joint Injection/Aspiration Today M17.12 - Unilateral primary osteoarthritis, left knee Coding Level of Care Code Est Pt Level 3 (50986) Complex EM visit Add On G2211 Diagnoses Osteoarthritis of left knee M17.12 CPT Codes Coding - 94296 Large joint: 69624 - Large joint ([id number])
--- OUTSIDE RECORDS SUMMARY | 2024-10-18 13:37 | XMS_ITS | Encounter Summary ---
Author Organization [facility] Address [address] [place] [address] Care Team Providers Care Director Custom Name Role Phone Rhonda Bermanmandl MARCELO Primary Care Provider [phone] Encounter Details Date Type Department Care Team (Late st Contact Info) Description 06/07/2024 Lab Requisition [facility] - Main Lab [address] [facility] [place] [phone] Jordan Alvarado MD [address] [facility] [address] [place] [address] Benign essential microscopic hematuria Social History Tobacco [...] AM EST Office [facility] [address] [place] [phone] Jorge Davis PA [address] [place] [address] documented as of this encounter Procedures Procedure Name Priority Date/Time Associated Diagnosis Comments AP OUTSIDE CONSULT Routine 06/06/2024 12 :00 AM EDT Benign essential microscopic hematuria documented in this encounter Results * Anatomic pathology outside consult (06/06/2024 12:00 AM EDT) Final Diagnosis A. Urine, Voided, ([id number]): Negative for high grade urothelial carcinoma. 06/13/2024 3:12 PM EDT [facility] Clinical Information Benign essential microscopic hematuria R31.1 Urine cytology with reflex UroVysion ([facility]) 06/13/2024 3:12 PM EDT [facility] Gross Description A. Urine, Voided, ([id number]): Received is one ThinPrep slide for cytology. 06/13/2024 3:12 PM EDT [facility] Disclaimer Unless otherwise specified, all tissue is 10% NB formalin fixed and paraffin embedded. Technical pathology services provided by [facility] at [address] [facility] [address], [place] [address] (CLIA #[id number]/Sa laurence Hamilton MD, Rigging Foreman) 06/13/2024 3:12 PM EDT [facility] Tissue Urine specimen from urethra / Unknown 06/06/2024 06/07/2024 3:43 PM EDT us Jordan Alvarado MD LAB PATHOLOGY ORDERABLES Fi nal Result [facility] [address] [place] [address], documented in this encounter Visit Diagnoses Diagnosis Benign essential microscopic hematuria documented in this encounter Care Teams Director Custom Relationship Specialty Start Date End Date Guera Berman DO [address] [place] [address] PCP - General Internal Medicine 01/28/24 documented as of this encounter
== END 2024-10-18 13:38 | disposition home or self-care (01) ==
LOC: HO.HOS 13:11
PROVIDERS: PCP Physician Assistant; Visit Provider Orthopaedic Surgery
DX: M17.12 Unilateral primary osteoarthritis, left knee (principal)
CPT/HCPCS: 20610; 99213

== ENCOUNTER → 2024-10-18 13:11 | Outpatient (BNVA) | payer MEDICARE, SELFPAY | PROVIDERS: PCP Physician Assistant; Visit Provider Orthopaedic Surgery | DX: M17.12 Unilateral primary osteoarthritis, left knee (principal) | CPT/HCPCS: 20610; 99212; J2003; J7318 ==

== ENCOUNTER 2025-01-24 13:13 | Outpatient (AMB) | payer MEDICARE, SELFPAY ==
--- NOTE | 2025-01-24 13:17 | A.OFFVIS_ITS ---
Vital Signs 01/24/25 13:19 Height 5 ft 10 in Weight 225 lb BMI 32.3 Intake Visit Reasons: Left knee pain Intake Note: Dwight is a 84 year old male who presents with complaints of progressively worsening left knee pain. He describes his pain as sharp in nature. He has had injections in the past which gave him fairly good relief. He has also tried Tylenol and anti-inflammatory medicines which gave him minimal relief. He wishes to hold off on surgery if at all possible. Allergies No Known Allergies Allergy (Verified 10/18/24 13:16) Medication List - Last Reconciled 01/24/25 by Tani Dowling MD amlodipine-benazepril 5-20 mg 1 cap PO DAILY hydrochlorothiazide 25 mg PO DAILY loteprednol etabonate 0.2% 1 drp ophthalmic (eye) BID PRN tamsulosin 0.4 mg PO DAILY PFSH Medical History BPH (benign prostatic hyperplasia) HTN (hypertension) Surgical History Hx of arthroscopy of left knee Social History Are you a primary adult daycare coordinator to a significant other at home: No Do you presently have visiting nurse or other home services: No Patient Tobacco Use Status: Former Tobacco user Physical Exam Vital Signs: BMI result Body Mass Index 32.3 Const Other: Well-nourished well-developed very friendly male awake alert and oriented x3 in no acute distress Extrem Other: Left knee examination shows a minimal effusion, palpable crepitus with range of motion, pain with range of motion, no instability Office Procedures AMB Joint Injection/Aspiration Joint Injection/Aspiration Primary Site: left knee Prep: site was prepped using aseptic technique Injected: 40 mg of, DepoMedrol, with 4 mL of and 1% plain lidocaine Procedure: The patient tolerated the procedure well Coding 04773 - Large joint Procedure code (CPT) selection complete Results Reviewed Results Reviewed: X-rays of the patient's left knee taken previously show joint space narrowing, subchondral sclerosis, no acute bony abnormalities Assessment & Plan Assessment & Plan (1) Osteoarthritis of left knee: Code(s): M17.12 - Unilateral primary osteoarthritis, left knee Category: Medical (2) Left knee pain: Code(s): M25.562 - Pain in left knee Category: Medical Plan Mr. Chao presents with left knee pain due to degenerative joint disease. The risks and benefits of a left knee cortisone injection were discussed at length with the patient. The patient wished to proceed. He tolerated the injection well. He will continue with his activity modifications. If he does not get lasting relief from the cortisone injection I will see if the patient's insurance company will cover a Durolane viscosupplementation injection. I will see him back in 3 months' time. Feel free to call me at any time should q uestions regarding his orthopedic management arise. I spent 20 minutes in reviewing the patient's records and imaging studies, seeing the patient and documenting in the medical record. Orders: Orders AMB Joint Injection/Aspiration Today M17.12 - Unilateral primary osteoarthritis, left knee Coding Level of Care Code Est Pt Level 3 (99548) Complex EM visit Add On G2211 Diagnoses Osteoarthritis of left knee M17.12 Left knee pain M25.562 CPT Codes Coding - 85264 Large joint: 65366 - Large joint ([id number])
[2025-01-24 13:19] VITALS: BMI 32.3
--- OUTSIDE RECORDS SUMMARY | 2025-01-24 16:47 | XMS_ITS | Encounter Summary ---
Author Organization [facility] Address [address] [place] [address] Care Team Providers Care Stove Tender Name Role Phone Rhonda Bermanmandl MARCELO Primary Care Provider [phone] Encounter Details Date Type Department Care Team (Late st Contact Info) Description 06/07/2024 Lab Requisition [facility] - Main Lab [address] [facility] [place] [phone] Jordan Alvarado MD [address] [facility] [address] [place] [address] Benign essential microscopic hematuria Social History Tobacco [...] AM EST [facility] [address] [place] [phone] Jorge Davis PA [address] [place] [address] documented as of this encounter Procedures Procedure Name Priority Date/Time Associated Diagnosis Comments AP OUTSIDE CONSULT Routine 06/06/2024 12 :00 AM EDT Benign essential microscopic hematuria documented in this encounter Results * Anatomic pathology outside consult (06/06/2024 12:00 AM EDT) Final Diagnosis A. Urine, Voided, ([id number]): Negative for high grade urothelial carcinoma. 06/13/2024 3:12 PM EDT [facility] Clinical Information Benign essential microscopic hematuria R31.1 Urine cytology with reflex UroVysion (AUC/SHGUC) 06/13/2024 3:12 PM EDT [facility] Gross Description A. Urine, Voided, ([id number]): Received is one ThinPrep slide for cytology. 06/13/2024 3:12 PM EDT [facility] Disclaimer Unless otherwise specified, all tissue is 10% NB formalin fixed and paraffin embedded. Technical pathology services provided by [facility] at [address] [facility] [address], [place] [address] (CLIA #[id number]/Sa laurence Hamilton MD, Sugar Presser) 06/13/2024 3:12 PM EDT [facility] Tissue Urine specimen from urethra / Unknown 06/06/2024 06/07/2024 3:43 PM EDT us Jordan Alvarado MD LAB PATHOLOGY ORDERABLES Fi nal Result [facility] [address] [place] [address], documented in this encounter Visit Diagnoses Diagnosis Benign essential microscopic hematuria documented in this encounter Care Teams Stove Tender Relationship Specialty Start Date End Date Guera Berman DO [address] [place] [id number] PCP - General Internal Medicine 01/28/24 documented as of this encounter
--- OUTSIDE RECORDS SUMMARY | 2025-01-24 16:47 | XMS_ITS | Clinical Summary ---
Author Organization [facility] [address] [facility] Address [address] [facility] [place] [phone] Phone Care Team Providers Care Cleaner Operator Name Role Phone Guera Berman DO Primary Care Provider [phone] Allergies No known active allergies Medications ascorbic acid, vitamin C, 500 mg capsule Take by mouth. OTC 02/04/2021 Active aspirin 81 mg EC tablet Take 1 tablet by mouth daily. OTC 02/04/2021 Active B complex tablet Take by mouth. OTC 02/04/2021 Active SAW PALMETTO ORAL Take by mouth. [...] by mouth 1 (one) time each day. 06/13/2024 Active amLODIPine-citlalli zepril (LOTREL) 5-20 mg per capsule TAKE 1 CAPSULE DAILY 90 capsule 1 10/09/2024 Active hydroCHLOROthia zide (HYDRODIURIL) 25 mg tablet TAKE 1 TABLET ONCE DAILY 90 tablet 1 10/09/2024 Active Active Problems Problem Noted Date Diagnosed Date Benign prostatic hyperplasia with nocturia 08/29 Class 2 obesity due to excess calories in adult 07/31/2021 Primary hypertension 02/04/2021 Immunizations Immunization Administration Dates Next Due Influenza trivalent, 0.5mL [...] PROCEDURE: HISTORICAL TONSILLECTOMY KNEE ARTHROSCOPY Left PROCEDURE: OH ARTHROSCOPY AID TX SPINE&/FX KNEE W/O FIXJ; [...] Sign Reading Time Taken Comments Blood Pressure 126/54 08/28/2024 2:41 PM EDT Pulse 55 08/28/2024 2:14 PM EDT Temperature - - Respiratory Rate 16 02/28/2024 2:41 PM EST Oxygen Saturation - - Inhaled Oxygen Concentration - - Weight 109 kg (241 lb 6.4 oz) 08/28/2024 2:14 PM EDT Height 177.8 cm (5' 10 ) 08/28/2024 2:14 PM EDT Body Mass Index 34.64 08/28/2024 2:14 PM EDT Plan of Treatment Upcoming Encounters Date Type Department Care Team (Late st Contact Info) Description 03/05/2025 10:00 AM EST Office Visit Internal Medicine - [facility] [address] [place] [address] Jorge Davis PA [address] [place] [address] Health Maintenance Due Date Last Done Comments RSV Immunization Adult Patients (1 - 1-dose 75+ series) 2016 Falls Risk Assessment 03/08/2022 Medicare Annual Wellness Visit 03/08/2022 Social Influencers of Health Screening 03/08/2022 Depression Screening 03/29/2024 COVID-19 Vaccine ( season) 2024 12/16/2023, 12/16/2022, 12/30/2021, Additional history exists Influenza Vaccine (#1) 2024 , 12/16/2022, 11/30/2022, Additional history exists Hypertension/CHF/CAD Annual BMP Blood Test 08/28/2025 08/28/2024, 02/28/2024, 08/30/2023, Additional history exists Cholesterol Screening (Lipid Panel) 08/28/2029 08/28/2024, 02/04/2021 DTaP,Tdap,and Td Vaccines (2 - Td or Tdap) 08/05/2031 08/04/2021 Zoster Vaccines Completed 01/17/2019, 01/27, 01/13/2018 Pneumococcal Vaccine: 50+ Years Completed 08/17/2022, 08/04/2021, 02/15/2018, Additional history exists HIB Vaccines Aged Out [...] Procedure Name Priority Date/Time Associated Diagnosis Comments BASIC METABOLIC PANEL Routine 08/28/2024 2:52 PM EDT Primary hypertension LIPID PANEL WITH REFLEX TO DIRECT LDL Routine 08/28/2024 2:52 PM EDT Primary hypertension from Last 3 Months or Most Recently Relevant to Health Maintenance Results * (ABNORMAL) Lipid panel with reflex to direct LDL (08/28/2024 2:52 PM EDT) Cholesterol 202(H) 0 - 200 mg/dL LAB CHEMISTRY METHOD 08/28/2024 7:17 PM EDT [facility] Triglycerides 216(H) 0 - 150 mg/dL LAB CHEMISTRY METHOD 08/28/2024 7:17 PM EDT [facility] HDL 45 >=40 mg/dL LAB CHEMISTRY METHOD 08/28/2024 7:17 PM EDT [facility] LDL Calculated 114(H) 0 - 100 mg/dL LAB CHEMISTRY METHOD 08/28/2024 7:17 PM EDT [facility] VLDL Cholesterol Justice 43.2 mg/dL LAB CHEMISTRY METHOD 08/28/2024 7:17 PM EDT [facility] Non HDL Chol. (LDL+VLDL) 157(H) <145 mg/dL LAB CHEMISTRY METHOD 08/28/2024 7:17 PM [facility] Chol/HDL Ratio 4.5(H) 0.0 - 4.4 LAB CHEMISTRY METHOD 08/28/2024 7:17 PM [facility] Blood Venous blood specimen / Unknown Venipuncture / Unknown 08/28/2024 2:52 PM EDT 08/28/2024 2:53 PM EDT us Jorge MANCINI LAB BLOOD ORDERABLES Fi nal Result [facility] [address] [place] [address], [place] [phone] * Basic metabolic panel (08/28/2024 2:52 PM EDT) Sodium 136 133 - 145 mmol/L LAB CHEMISTRY METHOD 08/28/2024 7:09 PM [facility] Potassium 4.0 3.5 - 5.5 mmol/L LAB CHEMISTRY METHOD 08/28/2024 7:09 PM [facility] Chloride 103 96 - 110 mmol/L LAB CHEMISTRY METHOD 08/28/2024 7:09 PM [facility] CO2 25 21 - 32 mmol/L LAB CHEMISTRY METHOD 08/28/2024 7:09 PM [facility] Anion Gap 8 3 - 11 LAB CHEMISTRY METHOD 08/28/2024 7:09 PM [facility] Glucose 90 70 - 100 mg/dL LAB CHEMISTRY METHOD 08/28/2024 7:09 PM [facility] BUN 23 5 - 25 mg/dL LAB CHEMISTRY METHOD 08/28/2024 7:09 PM [facility] Creatinine 0.98 0.70 - 1.30 mg/dL LAB CHEMISTRY METHOD 08/28/2024 7:09 PM EDT [facility] eGFR 77 >=60 mL/min/1. 73m2 LAB CHEMISTRY METHOD 08/28/2024 7:09 PM EDT [facility] Comment:Calculation based on the Chronic Kidney Disease Epidemiology Collaboration (CKD-EPI) equation refit without adjustment for race. BUN/Creatinine Ratio 23.5 LAB CHEMISTRY METHOD 08/28/2024 7:09 PM EDT [facility] Calcium 9.9 8.5 - 10.5 mg/dL LAB CHEMISTRY METHOD 08/28/2024 7:09 PM EDT [facility] Blood Venous blood specimen / Unknown Venipuncture / Unknown 08/28/2024 2:52 PM EDT 08/28/2024 2:53 PM EDT us Jorge MANCINI LAB BLOOD ORDERABLES Fi nal Result [facility] [address] [place] [address], from Last 3 Months or Most Recently Relevant to Health Maintenance Insurance [facility] MEDICARE MEDICARE Care Teams Cleaner Operator Relationship Specialty Start Date End Date Guera Berman DO [address] [facility] [place] [address] PCP - General Internal Medicine 01/28/24
== END 2025-01-24 13:37 | disposition home or self-care (01) ==
LOC: HO.HOS 13:13
PROVIDERS: PCP Physician Assistant; Visit Provider Orthopaedic Surgery
DX: M17.12 Unilateral primary osteoarthritis, left knee (principal); M25.562 Pain in left knee
CPT/HCPCS: 20610; 99213

== ENCOUNTER → 2025-01-24 13:13 | Outpatient (BNVA) | payer MEDICARE, SELFPAY | PROVIDERS: PCP Physician Assistant; Visit Provider Orthopaedic Surgery | DX: M25.562 Pain in left knee (principal); M17.12 Unilateral primary osteoarthritis, left knee | CPT/HCPCS: 20610; 99212; J1010; J2003 ==